=== PATIENT | male | born 1995 | race Hispanic/Latino ===

== ENCOUNTER 2025-01-22 19:54 | Emergency (ER) | payer SELFPAY ==
[2025-01-22] MEDS ORDERED: CEPHALEXIN 250 MG CAP ONE (20:18)
[2025-01-22] MEDS ORDERED: TDAP (DIPHTH,PERTUSS(ACELL),TET VAC) 0.5 ML VIAL IMVAC ONE (20:19)
--- NOTE | 2025-01-22 20:31 | EDPHYS ---
Physician Documentation [facility] Name: Ulises Delgado Jr Age: 29 yrs Sex: Male : 1995 Arrival Date: 01/22/2025 Time: 19:54 Bed 18 Private MD: ED Physician Loki Pena HPI: 01/22 20:56 This 29 yrs old Male presents to ER via Ambulatory with complaints of Hand kb Injury. 20:56 Pt is a 29 year old male who presents for puncture wound to left hand. States he was kb using a drill and accidentally drilled his hand. Full ROM. Denies pain. . Historical: - Allergies: 20:06 No Known Allergies; cm10 - PMHx: 20:06 Diabetes mellitus; Hypertensive disorder; cm10 - Immunization history:: Adult Immunizations not up to date, Last tetanus immunization: unknown. - Infectious Disease History:: Denies. - Social history:: Smoking status: unknown. ROS: 20:53 Constitutional: As per HPI kb Exam: 20:53 Constitutional: This is a well developed, well nourished patient who is awake, alert, kb and in no acute distress. Head/Face: Normocephalic, atraumatic. ENT: Moist Mucous membranes Cardiovascular: Regular rate Respiratory: Respirations even and unlabored. No increased work of breathing. Talking in full sentences MS/ Extremity: Pulses equal, no cyanosis. Neurovascular intact. Full, normal range of motion. Neuro: Awake and alert, GCS 15, oriented to person, place, time, and situation. 20:53 Skin: injury, puncture(s), that are superficial, of the palm of left hand, Vital Signs: 20:05 BP 137 / 69; Pulse 91; Resp 18; Temp 98.5(O); Pulse Ox 97% on R/A; Weight 165.56 kg; cm10 Height 5 ft. 5 in. ; Pain 2/10; 20:30 BP 131 / 70; Pulse 87; Resp 18; Pulse Ox 99% on R/A; Pain 0/10; rg5 20:05 Body Mass Index 60.74 (165.56 kg, 165.1 cm) cm10 20:05 Pain Scale: Adult cm10 20:30 Pain Scale: Adult rg5 MDM: 20:11 Medical Screening Exam initiated kb 20:53 Differential diagnosis: puncture, FB, laceration. Data reviewed: vital signs, nurses kb notes. Counseling: I had a detailed discussion with the patient and/or guardian regarding the historical points, exam findings, and any diagnostic results supporting the discharge/admit diagnosis, the need for outpatient follow up, a family practitioner, to return to the emergency department if symptoms worsen or persist or if there are any questions or concerns that arise at home. ED course: Will give antibiotics due to history of diabetes. Administered Medications: 20:20 Drug: Cephalexin PO 500 mg PO once Route: PO; rg5 20:52 Follow up: Response: No adverse reaction rg5 20:21 Drug: Boostrix Tdap IM 0.5 ml IM once; as a single dose Route: IM; Site: left deltoid; rg5 20:53 Follow up: Response: No adverse reaction rg5 Disposition Summary: 01/22/25 20:30 Discharge Ordered Notes: Location: Home kb Condition: Stable kb Diagnosis - Puncture wound without foreign body of left hand kb Followup: kb - With: Emergency Department - When: As needed - Reason: Worsening of condition Followup: kb - With: Private Physician - When: 2 - 3 days - Reason: Recheck today's complaints, Continuance of care, Re-evaluation by your physician Discharge Instructions: - Discharge Summary Sheet kb - Puncture Wound, [id number] kb Forms: - Medication Reconciliation Form kb - Antibiotic Education kb - Prescription Opioid Use kb - Patient Portal Instructions kb - Leadership Thank You Letter kb Prescriptions: - Cephalexin 500 mg Oral Capsule - take 1 capsule ORAL route every 8 hours for 10 days; 30 capsule; Refills: 0, kb Product Selection Permitted Signatures: Charlette Weaver FNP-C FNP-Rosina Chairez, RN RN cm10 Michele Winston, RN RN rg5
--- NOTE | 2025-01-22 20:31 | ER ---
Nurse's Notes [facility] Name: Ulises Delgado Jr Age: 29 yrs Sex: Male : 1995 Arrival Date: 01/22/2025 Time: 19:54 Bed 18 Private MD: Diagnosis: Puncture wound without foreign body of left hand Presentation: 01/22 20:05 Chief complaint: Patient states: Was using a drill and it punctured his left hand. Pt cm10 noted to have puncture wound, no active bleeding. Coronavirus screen: Client denies travel out of the [place] in the last 14 days. Ebola Screen: Patient denies travel to an Ebola-affected area in the 21 days before illness onset. Initial Sepsis Screen: Does the patient meet any 2 criteria? No. Patient's initial sepsis screen is negative. Does the patient have a suspected source of infection? No. Patient's initial sepsis screen is negative. Risk Assessment: Do you want to hurt yourself or someone else? Patient reports no desire to harm self or others. Onset of symptoms was January 22, 2025. 20:05 Method Of Arrival: Ambulatory cm10 20:05 Acuity: MYLES 4 cm10 Triage Assessment: 20:06 General: Appears in no apparent distress. comfortable, Behavior is calm, cooperative. cm10 Pain: Complains of pain in palm of left hand Pain currently is 2 out of 10 on a pain scale. Neuro: No deficits noted. Level of Consciousness is awake, alert, obeys commands, Oriented to person, place, time, situation, Appropriate for age. Respiratory: No deficits noted. Airway is patent Respiratory effort is even, unlabored, Respiratory pattern is regular, symmetrical. Musculoskeletal: Range of motion: intact in all extremities. Injury Description: Puncture sustained to palm of left hand was sustained less than 30 minutes ago. Historical: - Allergies: 20:06 No Known Allergies; cm10 - PMHx: 20:06 Diabetes mellitus; Hypertensive disorder; cm10 - Immunization history:: Adult Immunizations not up to date, Last tetanus immunization: unknown. - Infectious Disease History:: Denies. - Social history:: Smoking status: unknown. Vital Signs: 20:05 BP 137 / 69; Pulse 91; Resp 18; Temp 98.5(O); Pulse Ox 97% on R/A; Weight 165.56 kg; cm10 Height 5 ft. 5 in. ; Pain 2/10; 20:30 BP 131 / 70; Pulse 87; Resp 18; Pulse Ox 99% on R/A; Pain 0/10; rg5 20:05 Body Mass Index 60.74 (165.56 kg, 165.1 cm) cm10 20:05 Pain Scale: Adult cm10 20:30 Pain Scale: Adult rg5 ED Course: 19:57 Patient arrived in ED. gm2 20:06 Triage completed. cm10 20:07 Arm band placed on right wrist. Patient placed in an exam room, on a stretcher. cm10 20:11 Char[facility]C [facility] kb 20:11 Loki Pena MD is Attending Physician. kb 20:12 Michele Winston, TITA is Primary Nurse. rg5 20:20 Irrigation of punctured on left hand irrigated with normal saline Patient tolerated rg5 well. 20:20 Patient did not have IV access during this emergency room visit. rg5 Administered Medications: 20:20 Drug: Cephalexin PO 500 mg PO once Route: PO; rg5 20:52 Follow up: Response: No adverse reaction rg5 20:21 Drug: Boostrix Tdap IM 0.5 ml IM once; as a single dose Route: IM; Site: left deltoid; rg5 20:53 Follow up: Response: No adverse reaction rg5 Outcome: 20:20 Discharged to home ambulatory, rg5 20:20 Condition: stable 20:20 Discharge instructions given to patient, family, Instructed on discharge instructions, Demonstrated understanding of instructions, follow-up care, medications, Prescriptions given X 1, 20:30 Discharge ordered by MD. kb 20:55 Patient left the ED. rg5 Signatures: Charlette Weaver FNP-C FNP-Ckb Martinez, Clarissa RN RN 10 Junie Morillo [facility] Michele Winston, TITA RIVERS rg5
[2025-01-22 21:18] VITALS: TEMP 98.5
[2025-01-22 21:20] VITALS: BP 131/70; O2SAT 99
== END 2025-01-22 20:55 | disposition home or self-care (01) ==
LOC: ER 19:54
DX: S61.432A Puncture wound without foreign body of left hand, initial encounter (principal)
CPT/HCPCS: 90715; 96372; 99284